=== PATIENT | female | born 1970 | race Caucasian/White ===

== ENCOUNTER 2016-08-18 15:04 | Outpatient (CLI) | payer BC ==
[~2016-08-18 15:04] MED LIST: FLONASE AL50 MCG/ACT
--- NOTE | 2016-08-18 18:27 | DIAGNOSTIC IMAGING REPORT ---
PROCEDURE: MG B/L IMPLANTS - DIAGNOSTIC INDICATION: Left breast nipple discharge. TECHNIQUE: CC and MLO digital views with CC and MLO implant displacement views of each breast. In addition, true lateral implant displacement view of the left breast was obtained. Finally, high-resolution left breast ultrasound was performed (18 mHz). COMPARISON: Compared to screening mammogram studies on 08/07/2010. FINDINGS: MAMMOGRAM: Computer-aided detection applied. Bilateral subpectoral implants appear intact the visualized portions of the surrounding breast parenchyma are moderately dense, but unchanged, and within normal limits. BREAST ULTRASOUND: There is a 2 cm x 0.5 cm lobulated intraductal mass in the lower inner left breast (0730 position) with moderate dilation of the involved. Mass demonstrates mild increased vascularity. IMPRESSION: 1. There is a 2 x 0.5 cm intraductal mass in the lower inner left breast. 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 An underlying malignant process is less likely, although still a possibility. Surgical consultation and excisional biopsy is recommended. 2. Findings discussed with the patient. 3. Findings called to Dr. Vyas. RESULT CODE: 4- Suspicious abnormality - biopsy should be considered. A. A negative report should not delay biopsy if a dominant or clinically suspicious mass is present. 10-15% of cancers are not identified by x-ray. B. A negative report may reinforce clinical impression. C. Adenosis and dense breasts may obscure an underlying neoplasm. D. False positive reports average 6-10%. E.. A yearly screening mammogram is recommended. A reminder letter will be scheduled.
== END 2016-08-18 23:00 ==
LOC: MAM SRH 15:04
DX: N63 Unspecified lump in breast (principal)